=== PATIENT | female | born 1980 | race Two or more races ===

== ENCOUNTER 2023-08-07 00:29 | Emergency (ER) | payer MEDICAID ==
[~2023-08-07] VITALS: Ht 160 cm; Wt 80.7 kg
[2023-08-07 01:32] VITALS: BP 137/75; TEMP 98.1; O2SAT 98
== END 2023-08-07 02:04 | disposition home or self-care (01) ==
LOC: ER 00:30
DX: O26.892 Other specified pregnancy related conditions, second trimester (principal); R55 Syncope and collapse